=== PATIENT | female | born 1980 | race African-American/Black ===

== ENCOUNTER → 2016-12-03 | Outpatient (CLI) | payer MEDICAID ==
[2016-12-03 16:07] LABS: CHLAM PCR NOT DETECTED (NOT DETECT)
== END ==
LOC: LAB 14:22
PROVIDERS: ATTEND Nurse Practitioner Acute Care
DX: N89.8 Other specified noninflammatory disorders of vagina (principal)
CPT/HCPCS: 87210; 87491; 87591

== ENCOUNTER 2017-03-05 13:45 | Emergency (ER) | payer MEDICAID ==
[2017-03-05] MEDS ORDERED: KETOROLAC TROMETHAMINE INJ/PF 30 MG/1 ML SDV IV ONE (15:04)
[2017-03-05] MEDS ORDERED: DEXAMETHASONE SOD PHOS INJ 10 MG/1 ML VIAL IV ONE (15:04)
[2017-03-05] MEDS ORDERED: NORMAL SALINE 1000 ML 1,000 ML IV ONE (15:14)
[2017-03-05 15:49] LABS: ABSOLUTE LYMPHOCYTES (AUTO) 1.1 10^3/uL (0.5-4.7); ABSOLUTE MONOCYTES (AUTO) 0.4 10^3/uL (0.1-1.4); ABSOLUTE NEUT (AUTO) 4.7 10^3/uL (1.7-8.2); BASOPHILS % (AUTO) 0.4 % (0-2); EOSINOPHILS % (AUTO) 0.2 % (0-6); HEMATOCRIT 40.6 % (36.0-47.0); HEMOGLOBIN 13.5 g/dL (12.0-15.5); HGB HCT DIFFERENCE -0.1; MEAN CORPUSCULAR HEMOGLOBIN 28.1 pg (27.0-33.4); MEAN CORPUSCULAR HGB CONC 33.3 g/dL (32.0-36.0); MEAN CORPUSCULAR VOLUME 84 fl (80-97); MONOCYTES % (AUTO) 6.4 % (3-13); RED BLOOD COUNT 4.81 10^6/uL (3.72-5.28); RED CELL DISTRIBUTION WIDTH 13.5 % (11.5-14.0); WHITE BLOOD COUNT 6.2 10^3/uL (4.0-10.5)
[2017-03-05 15:54] LABS: APPEARANCE,URINE SLIGHTLY-CLOUDY; BILIRUBIN,URINE NEGATIVE (NEGATIVE); GLUCOSE, URINE NEGATIVE (NEGATIVE); KETONES,URINE NEGATIVE (NEGATIVE); LEUKOCYTE ESTERASE,URINE NEGATIVE (NEGATIVE); NITRITE,URINE NEGATIVE (NEGATIVE); PROTEIN,URINE 30 mg/dL (NEGATIVE); URINE SPECIFIC GRAVITY 1.027
[2017-03-05 16:09] LABS: ALANINE AMINOTRANSFERASE 45 U/L (9-52); ALBUMIN 4.9 g/dL (3.5-5.0); ALKALINE PHOSPHATASE 59 U/L (38-126); ANION GAP 17 (5-19); ASPARTATE AMINO TRANSFERASE 30 U/L (14-36); BILIRUBIN,DIRECT 0.4 mg/dL (0.0-0.4); BILIRUBIN,TOTAL 0.6 mg/dL (0.2-1.3); BLOOD UREA NITROGEN 10 mg/dL (7-20); CALCIUM 10.2 mg/dL (8.4-10.2); CARBON DIOXIDE 26 mmol/L (22-30); CHLORIDE 100 mmol/L (98-107); CREATINE KINASE 247 U/L (30-135); CREATININE RESULT 0.74 mg/dL (0.52-1.25); GLUCOSE 95 mg/dL (75-110); POTASSIUM 3.8 mmol/L (3.6-5.0); SODIUM 142.9 mmol/L (137-145); TOTAL PROTEIN 8.4 g/dL (6.3-8.2)
[2017-03-05 16:09] LABS: URINE BARBITURATES SCREEN NEGATIVE; URINE METHADONE SCREEN NEGATIVE; URINE OPIATES LOW NEGATIVE; URINE PHENCYCLIDINE SCREEN NEGATIVE
--- NOTE | 2017-03-05 16:58 | ER Document Report ---
ED General - General Chief Complaint: General Weakness Stated Complaint: BODY WEAKNESS Time Seen by Provider: 03/05/17 14:29 TRAVEL OUTSIDE OF THE [place] IN LAST 30 DAYS: No - HPI Patient complains to provider of: Arthralgias generalized weakness Notes: Patient states recently diagnosed with RA. Patient states was diagnosed sometime ago with Crohn's disease. Patient states currently on mesalamine. Patient states continues to have generalized weakness arthralgias. Patient states otherwise feels unwell is not to start on any other treatment for her RA. Denies fevers chills nausea vomiting diarrhea. Patient resting comfortably in well spirits upon my evaluation. - Related Data Allergies/Adverse Reactions: No Known Allergies Allergy (Verified 03/05/17 13:55) Past Medical History - Social History Smoking Status: Current Some Day Smoker Chew tobacco use (# tins/day): No Frequency of alcohol use: Occasional Drug Abuse: None Family History: Reviewed & Not Pertinent Patient has suicidal ideation: No Patient has homicidal ideation: No Renal/ Medical History: Denies: Hx Peritoneal Dialysis GI Medical History: Reports: Hx Crohn's Disease Psychiatric Medical History: Reports: Hx Anxiety, Hx Depression - anxiety Past Surgical History: Reports: Hx Abdominal Surgery - 2009, Hx Gynecologic Surgery - tubal , thinks lost tube and 1/2 ovary?, Hx Tonsillectomy - Immunizations Immunizations up to date: Yes Hx Diphtheria, Pertussis, Tetanus Vaccination: No Review of Systems - Review of Systems Constitutional: Weakness EENT: No symptoms reported Cardiovascular: No symptoms reported Respiratory: No symptoms reported Gastrointestinal: No symptoms reported Genitourinary: No symptoms reported Female Genitourinary: No symptoms reported Musculoskeletal: Muscle pain Skin: No symptoms reported Hematologic/Lymphatic: No symptoms reported Neurological/Psychological: No symptoms reported -: Yes All other systems reviewed and negative Physical Exam - Vital signs Vitals: Temp Pulse Resp BP Pulse Ox 98.4 F 72 16 117/54 L 98 03/05/17 13:52 03/05/17 13:52 03/05/17 13:52 03/05/17 13:52 03/05/17 13:52 Interpretation: Normal - General General appearance: Appears well, Alert - HEENT Head: Normocephalic, Atraumatic Eyes: Normal Pupils: PERRL - Respiratory Respiratory status: No respiratory distress Chest status: Nontender Breath sounds: Normal Chest palpation: Normal - Cardiovascular Rhythm: Regular Heart sounds: Normal auscultation Murmur: No - Abdominal Inspection: Normal Distension: No distension Bowel sounds: Normal Tenderness: Nontender Organomegaly: No organomegaly - Back Back: Normal, Nontender - Extremities General upper extremity: Normal inspection, Nontender, Normal color, Normal ROM , Normal temperature General lower extremity: Normal inspection, Nontender, Normal color, Normal ROM , Normal temperature, Normal weight bearing. No: Rhina's sign - Neurological Neuro grossly intact: Yes Cognition: Normal Orientation: AAOx4 [place] Coma Scale Eye Opening: Spontaneous Jeremiah Coma Scale Verbal: Oriented [place] Coma Scale Motor: Obeys Commands [place] Coma Scale Total: 15 Speech: Normal Motor strength normal: LUE, RUE, LLE, RLE Sensory: Normal - Psychological Associated symptoms: Normal affect, Normal mood - Skin Skin Temperature: Warm Skin Moisture: Dry Skin Color: Normal Course - Re-evaluation Re-evalutation: 03/05/17 19:59 Laboratory studies not show any significant pathology. We will start the patient on steroids for her underlying RA. Patient was encouraged follow-up with her PCP for rheumatology referral. Patient agrees with assessment and plan. - Vital Signs Vital signs: Temp Pulse Resp BP Pulse Ox 99.1 F 64 16 124/60 100 03/05/17 17:05 03/05/17 17:05 03/05/17 17:05 03/05/17 17:05 03/05/17 17:05 - Laboratory Result Diagrams: 03/05/17 15:20 03/05/17 15:20 Laboratory results interpreted by me: 03/05/17 03/05/17 15:20 15:25 Creatine Kinase 247 H Total Protein 8.4 H Urine Protein 30 H Urine Urobilinogen 2.0 H Urine Ascorbic Acid 40 H Discharge - Discharge Clinical Impression: Arthralgia Qualifiers: Joint pain location: unspecified Qualified Code(s): M25.50 - Pain in unspecified joint Condition: Good Disposition: HOME, SELF-CARE Instructions: Arthralgia ([facility]), Arthritis ([facility]) Additional Instructions: At this time your lab work does not show any critical pathology. Please take medication as prescribed. This will aid in your arteries symptoms however for chronic management you will need to follow-up with your primary care physician. Return to the ER for any concerns. Prescriptions: Naproxen [Naprosyn 250 mg Tablet] 250 mg PO DAILY PRN #30 tablet PRN Reason: Prednisone [Deltasone] 60 mg PO DAILY #24 tablet Forms: Return to Work Referrals: LEONEL HUERTAS MD [Primary Care Provider] - Follow up as needed
[2017-03-05 17:06] VITALS: BP 124/60
== END 2017-03-05 17:06 | disposition home or self-care (01) ==
LOC: ER 13:45
DX: M25.50 Pain in unspecified joint (principal); R53.1 Weakness; K50.90 Crohn's disease, unspecified, without complications; F17.200 Nicotine dependence, unspecified, uncomplicated
CPT/HCPCS: 99284; 96361; 96374; 96375; 36415; 82550; 84702; 85025; 80053; 81001; 80307; J1885; J7030; J1100

== ENCOUNTER 2018-03-12 13:24 | Emergency (ER) | payer MEDICAID ==
[2018-03-12] MEDS ORDERED: PREDNISONE 20 MG TABLET PO ONE (14:21)
[2018-03-12] MEDS ORDERED: ACETAMINOPHEN 325 MG TABLET PO ONE (14:21)
--- NOTE | 2018-03-12 14:29 | ER Document Report ---
HPI - HPI Patient complains to provider of: Joint pain Time Seen by Provider: 03/12/18 14:02 Onset: Other Onset/Duration: Persistent Quality of pain: Achy Pain Level: 4 Context: Patient reports a history of rheumatoid arthritis and complains of joint pain for several months that has worsened recently. Patient states that her joints do hurt worse with weather changes. Patient states that she finally has a referral to a optical designer but that is not until May of next year. Patient reports that she did start a new job recently and increased activity seems to be making her pain worse as well. Patient denies any fever or injury. Patient states that her doctor had placed her on tramadol to help with her pain symptoms but patient states that the tramadol did not do anything that the [id number] anti-inflammatory medications were doing. Associated Symptoms: Other - Knee joint, foot and hand joint pain. denies: Fever Exacerbated by: Movement Relieved by: Denies Similar symptoms previously: Yes Recently seen / treated by doctor: No - ROS ROS below otherwise negative: Yes Systems Reviewed and Negative: Yes All other systems reviewed and negative - CONSTITUTIONAL Constitutional: DENIES: Fever, Chills - NEURO Neurology: DENIES: Weakness - GASTROINTESTINAL Gastrointestinal: DENIES: Nausea - REPRODUCTIVE Reproductive: DENIES: : - MUSCULOSKELETAL Musculoskeletal: REPORTS: Extremity pain - bilateral knee, Swelling - DERM Skin Color: Normal Skin Problems: None Past Medical History - General Information source: Patient - Social History Smoking Status: Current Some Day Smoker Smoking Education Provided: Yes Frequency of alcohol use: None Drug Abuse: None Occupation: Housekeeping Lives with: Family Family History: Reviewed & Not Pertinent Patient has suicidal ideation: No Patient has homicidal ideation: No Renal/ Medical History: Denies: Hx Peritoneal Dialysis GI Medical History: Reports: Hx Crohn's Disease Musculoskeletal Medical History: Reports Hx Arthritis - Rheumatoid arthritis Psychiatric Medical History: Reports: Hx Anxiety, Hx Depression - anxiety Past Surgical History: Reports: Hx Abdominal Surgery - 2010, Hx Gynecologic Surgery - tubal , thinks lost tube and 1/2 ovary?, Hx Tonsillectomy - Immunizations Immunizations up to date: Yes Hx Diphtheria, Pertussis, Tetanus Vaccination: No Vertical Provider Document - CONSTITUTIONAL Agree With Documented VS: Yes Exam Limitations: No Limitations General Appearance: WD/WN, No Apparent Distress - INFECTION CONTROL TRAVEL OUTSIDE OF THE [place] IN LAST 30 DAYS: No - HEENT HEENT: Atraumatic, Normocephalic - NECK Neck: Normal Inspection, Supple. negative: Lymphadenopathy-Left, Lymphadenopathy-Right - RESPIRATORY Respiratory: Breath Sounds Normal, No Respiratory Distress - CARDIOVASCULAR Cardiovascular: Regular Rate, Regular Rhythm, No Murmur Pulses: Normal: Radial, Dorsalis pedis - BACK Back: Normal Inspection - MUSCULOSKELETAL/EXTREMETIES Musculoskeletal/Extremeties: MAEW, FROM, Tender - Generalized tenderness to bilateral knees, ankles and small bones of bilateral hands, Edema - 1+ edema to bilateral knees Notes: Normal skin color and temperature overlying joints of hands knees and feet - NEURO Level of Consciousness: Awake, Alert, Appropriate Motor/Sensory: No Motor Deficit - DERM Integumentary: Warm, Dry, No Rash Course - Re-evaluation Re-evalutation: 03/12/18 14:22 Patient presents with joint tenderness to knees hands and feet consistent with reported history of rheumatoid arthritis. Patient states that her primary doctor has only given her tramadol to help manage her pain symptoms while waiting for her rheumatology referral in May. Patient denies any illness or fever. Patient denies any trauma. Patient states that the weather does affect her pain as well as recently starting a new job that is physically demanding. Patient states that she does not like the way the tramadol makes her feel and it does not help her pain any more significantly than over-the- counter NSAIDs have. - Vital Signs Vital signs: Temp Pulse Resp BP Pulse Ox 99.4 F 66 16 115/57 L 100 03/12/18 13:46 03/12/18 13:46 03/12/18 13:46 03/12/18 13:46 03/12/18 13:46 Discharge - Discharge Clinical Impression: Hx of rheumatoid arthritis Joint pain Qualifiers: Joint pain location: unspecified Qualified Code(s): M25.50 - Pain in unspecified joint Condition: Stable Disposition: HOME, SELF-CARE Instructions: Rheumatoid Arthritis ([facility]), Steroid Medication Additional Instructions: Return immediately for any new or worsening symptoms Followup with your primary care provider, call tomorrow to make a followup appointment Call the optical designer office to see if they have a call out list for appointments so that you may possibly get a sooner appointment Prescriptions: Prednisone [Deltasone 5 mg Tablet] 5 mg PO ASDIR PRN #100 tablet PRN Reason: Forms: Return to Work Referrals: RAUL VEGAS MD [ACTIVE STAFF] - Follow up as needed [facility] [Provider Group] - Follow up as needed
[2018-03-12 14:50] VITALS: BP 124/52
== END 2018-03-12 14:52 | disposition home or self-care (01) ==
LOC: ER 13:24
DX: M25.50 Pain in unspecified joint (principal); M06.9 Rheumatoid arthritis, unspecified
CPT/HCPCS: 99283; J3490; J7512

== ENCOUNTER 2018-08-18 15:13 | Emergency (ER) | payer MEDICAID ==
[2018-08-18 15:23] VITALS: BP 123/57
[2018-08-18] MEDS ORDERED: KETOROLAC TROMETHAMINE 60 MG/2 ML SDV IM ONE (15:35)
--- NOTE | 2018-08-18 15:40 | ER Document Report ---
HPI - HPI Time Seen by Provider: 08/18/18 15:27 Pain Level: 4 Notes: Patient is a 38-year-old female with a history of rheumatoid arthritis who presents the emergency department complaining of bilateral feet pain to the soles of her feet that is been ongoing for months. Patient states that she has been seen by multiple providers as well as a software quality manager and had x-rays performed which were unremarkable. Patient states that she has the worst pain on first step in the morning bilaterally. Patient states that she usually wears hard soled flip-flops. Patient states that she has not had any surgery, procedure, injection, or therapy. Pain does not radiate. She has not noticed any bruising or swelling. No injury. Denies drug allergies. Denies any headache, fever, neck pain, URI, sore throat, chest pain, palpitations, syncope, cough, shortness of breath, wheeze, dyspnea, abdominal pain, nausea/vomiting/diarrhea, urinary retention, dysuria, hematuria, loss of control of bowel or bladder, numbness/tingling, muscle paralysis, or rash. - ROS Systems Reviewed and Negative: Yes All other systems reviewed and negative - CONSTITUTIONAL Constitutional: DENIES: Fever, Chills - REPRODUCTIVE Reproductive: DENIES: : - MUSCULOSKELETAL Musculoskeletal: REPORTS: Extremity pain - bilateral foot pain Past Medical History - Social History Smoking Status: Current Some Day Smoker Frequency of alcohol use: None Drug Abuse: None Family History: Reviewed & Not Pertinent Patient has suicidal ideation: No Patient has homicidal ideation: No Renal/ Medical History: Denies: Hx Peritoneal Dialysis GI Medical History: Reports: Hx Crohn's Disease Musculoskeletal Medical History: Reports Hx Arthritis - Rheumatoid arthritis Psychiatric Medical History: Reports: Hx Anxiety, Hx Depression - anxiety Past Surgical History: Reports: Hx Abdominal Surgery - 2010, Hx Gynecologic Surgery - tubal , thinks lost tube and 1/2 ovary?, Hx Tonsillectomy - Immunizations Immunizations up to date: Yes Hx Diphtheria, Pertussis, Tetanus Vaccination: No Vertical Provider Document - CONSTITUTIONAL Agree With Documented VS: Yes Notes: PHYSICAL EXAMINATION: GENERAL: Well-appearing, well-nourished and in no acute distress. LUNGS: Breath sounds clear to auscultation bilaterally and equal. No wheezes rales or rhonchi. HEART: Regular rate and rhythm without murmurs, rubs, gallops. Musculoskeletal: b/l foot/ankle:No swelling, ecchymosis or deformity. FROM to passive/active. Strength 5+/5. N/V intact distal. + tenderness to the plantar foot b/l. No bony tenderness of the foot/ankle. Achilles intact. Lis Franc maneuver neg. Anterior drawer neg. Extremities: No cyanosis, clubbing, or edema b/l. Peripheral pulses 2+. Capillary refill less than 3 seconds. NEUROLOGICAL: Normal speech, normal gait. Normal sensory, motor exams PSYCH: Normal mood, normal affect. SKIN: Warm, Dry, normal turgor, no rashes or lesions noted. - INFECTION CONTROL TRAVEL OUTSIDE OF THE [place] IN LAST 30 DAYS: No Course - Re-evaluation Re-evalutation: 08/18/18 15:37 Patient is an afebrile, well-hydrated, 38-year-old female who presents to the ED with b/l feet pain which I suspect to be possible plantar fasciitis. Vitals are acceptable without any significant tachycardia, tachypnea, or hypoxia. PE is otherwise unremarkable for any neurovascular compromise, obvious tendon/ligament rupture, obvious fracture/dislocation, septic joint. Toradol given IM. Patient is nontoxic-appearing. Patient is able to ambulate and weight-bear. Supportive shoes reviewed. Pt has reportedly had previous work ups for the same issue with podiatry/family med. No labs or imaging warranted at this time based on H&P. Conservative measures otherwise for symptoms. Recheck with your PCM in 3-5 days. Consider consult orthopedics. Return to the ED with any worsening/concerning symptoms otherwise as reviewed in discharge. Patient is in agreement. - Vital Signs Vital signs: Temp Pulse Resp BP Pulse Ox 98.8 F 72 14 123/57 L 100 08/18/18 15:19 08/18/18 15:19 08/18/18 15:19 08/18/18 15:19 08/18/18 15:19 Discharge - Discharge Clinical Impression: Bilateral foot pain Condition: Stable Disposition: HOME, SELF-CARE Instructions: Plantar Fasciitis or Heel Spur ([facility]) Additional Instructions: Rest, Ice, Compression, Elevation Tylenol/ibuprofen as needed Light stretches daily Strength exercises as able Moist heat and massage may help F/u with your PCP in 3-5 days for a recheck Consider consult(s) with Orthopedics/physical therapy/podiatry for ongoing/worsening symptoms Return to the ED with any worsening symptoms and/or development of fever, headache, chest pain, palpitations, syncope, shortness of breath, trouble breathing, abdominal pain, n/v/d, muscle weakness/paralysis, numbness/tingling, swelling, redness, or other worsening symptoms that are concerning to you. Prescriptions: Prednisone [Deltasone 10 mg Tablet] 10 mg PO DAILY #18 tablet Referrals: GABRIEL BURGOS MD [Primary Care Provider] - Follow up as needed KERRY MNOTOYA DPM [ACTIVE STAFF] - Follow up in 1 week
== END 2018-08-18 15:59 | disposition home or self-care (01) ==
LOC: ER 15:13
DX: M79.672 Pain in left foot (principal); M79.671 Pain in right foot
CPT/HCPCS: 99283; 96372; J1885

== ENCOUNTER 2019-05-24 17:44 | Emergency (ER) | payer MEDICAID ==
[2019-05-24] MEDS ORDERED: ONDANSETRON 4 MG TAB.RAPDIS PO ONE ×2 (19:21→22:00)
[2019-05-24] MEDS ORDERED: ACETAMINOPHEN 325 MG TABLET PO ONE ×2 (19:21→22:00)
[2019-05-24] MEDS ORDERED: KETOROLAC TROMETHAMINE INJ/PF 30 MG/1 ML SDV IM ONE ×2 (19:21→22:00)
--- NOTE | 2019-05-24 19:23 | ER Document Report ---
HPI - HPI Time Seen by Provider: 05/24/19 19:21 Pain Level: 3 Context: Patient is a 39-year-old female presents emergency department with a chief complaint of flulike symptoms. Patient reports last night developing a sore throat and then today waking up with a runny nose, productive cough, chills. Patient reports she do not get the influenza vaccine. Patient denies known exposure. Patient denies sick contacts. Patient reports nausea with 2 episodes of vomiting. Patient has not had anything for her discomfort today. Patient does have a history of Crohn's. Denies diarrhea. - REPRODUCTIVE Reproductive: DENIES: : Past Medical History - General Information source: Patient - Social History Smoking Status: Current Every Day Smoker Frequency of alcohol use: Occasional Drug Abuse: None Lives with: Family Family History: Reviewed & Not Pertinent Patient has suicidal ideation: No Patient has homicidal ideation: No - Past Medical History Cardiac Medical History: Reports: None Pulmonary Medical History: Reports: None EENT Medical History: Reports: None Neurological Medical History: Reports: None Endocrine Medical History: Reports: None Renal/ Medical History: Reports: None. Denies: Hx Peritoneal Dialysis Malignancy Medical History: Reports: None GI Medical History: Reports: Hx Crohn's Disease Musculoskeletal Medical History: Reports Hx Arthritis - Rheumatoid arthritis Skin Medical History: Reports None Psychiatric Medical History: Reports: Hx Anxiety, Hx Depression - anxiety Traumatic Medical History: Reports: None Infectious Medical History: Reports: None Past Surgical History: Reports: Hx Abdominal Surgery - 2010, Hx Gynecologic Surgery - tubal , thinks lost tube and 1/2 ovary?, Hx Tonsillectomy - Immunizations Immunizations up to date: Yes Hx Diphtheria, Pertussis, Tetanus Vaccination: No Vertical Provider Document - CONSTITUTIONAL Agree With Documented VS: Yes Exam Limitations: No Limitations General Appearance: No Apparent Distress Notes: GENERAL: Well-appearing, well-nourished and in no acute distress. HEAD: Atraumatic, normocephalic. EYES: Pupils equal round and reactive to light, extraocular movements intact, sclera anicteric, conjunctiva are normal. ENT: TMs normal, nares patent, bilateral erythematous and edematous turbinates, oropharynx clear without exudates. Moist mucous membranes. Clear rhinorrhea. NECK: Normal range of motion, supple without lymphadenopathy or JVD. LUNGS: Breath sounds clear to auscultation bilaterally and equal. No wheezes rales or rhonchi. Congested cough noted throughout examination. HEART: Regular rate and rhythm without murmurs, rubs or gallops. ABDOMEN: Soft, nontender, normoactive bowel sounds. No guarding, no rebound. No masses appreciated. BACK: No cervical, thoracic, lumbar midline tenderness. No saddle anesthesia, normal distal neurovascular exam. GENITOURINARY: Deferred. EXTREMITIES: Normal range of motion, no pitting or edema. No clubbing or cyanosis. NEUROLOGICAL: Cranial nerves II through XII grossly intact. Normal speech, normal gait. PSYCH: Normal mood, normal affect. SKIN: Warm, Dry, normal turgor, no rashes or lesions noted. - INFECTION CONTROL TRAVEL OUTSIDE OF THE [place] IN LAST 30 DAYS: No Course - Re-evaluation Re-evalutation: 05/24/19 19:23 Will test for the flu. Patient is tolerating liquids without vomiting currently. Will give antinausea medication as well as Tylenol and Toradol. 05/24/19 21:17 Patient was negative for influenza. Patient is presenting like she does have influenza with runny nose, cough, fever, congestion. We will treat the patient like she has it and give Tamiflu. Patient is agreement with this plan. Patient denies sick contacts at home. I did inform her if she does have influenza or viral illness is highly contagious. Patient encouraged to drink plenty of fluids, take Tylenol and ibuprofen [id number] for fever and body aches. Patient currently is not febrile, tachycardic or hypotensive. - Vital Signs Vital signs: Temp Pulse Resp BP Pulse Ox 99.5 F 87 16 126/59 H 100 05/24/19 18:18 05/24/19 18:18 05/24/19 18:18 05/24/19 18:18 05/24/19 18:18 Discharge - Discharge Clinical Impression: Flu-like symptoms, Rhinorrhea Condition: Stable Disposition: HOME, SELF-CARE Additional Instructions: *Today you are seen in the emergency department for flulike symptoms. Your influenza testing was negative but I am going to treat you like you do have it as her symptoms are consistent with influenza. Please take Tylenol and ibuprofen [id number] for your body aches and fever. I am giving you antinausea medication, only use this as needed. Please make sure you are pushing fluids to stay hydrated. Please rest. Please return emergency department if you develop any worsening symptoms. Viral Syndrome The physician has diagnosed a viral infection. Viruses not only cause "colds," but can cause many different symptoms including generalized aching, fever, headache, cough, diarrhea, nausea, vomiting, and fatigue. The treatment, for the most part, is simply relief of symptoms. This means that antibiotics are usually not given. Rest, fluids, pain medications and, occasionally, medication for the specific symptoms that are most bothersome will be prescribed. Use good handwashing to avoid passing the virus to others. Shared toys should be cleaned with disinfectant. Clean the toilets, sinks, and counter surfaces in bathrooms. Launder clothing in hot water. Contact the physician if you develop any new or unusual symptoms such as severe headache, stiff neck, high fever, chest pain, productive cough, or shortness of breath. You should be rechecked if you don't see marked impr ovement within seven to 10 days. Prescriptions: Oseltamivir Phosphate [Tamiflu 75 mg Capsule] 75 mg PO BID 5 Days #10 capsule Forms: Return to Work Referrals: RAJESH NUGENT, [employer]PER[facility] [Primary Care Provider] - Follow up as needed
[2019-05-24 20:36] LABS: A TYPE INFLUENZA AG NEGATIVE (NEGATIVE); B INFLUENZA AG NEGATIVE (NEGATIVE)
[2019-05-24 21:02] VITALS: BP 123/64
== END 2019-05-24 21:00 | disposition home or self-care (01) ==
LOC: ER 17:44
DX: J34.89 Other specified disorders of nose and nasal sinuses (principal); J02.9 Acute pharyngitis, unspecified; R05 Cough; R68.83 Chills (without fever); R11.2 Nausea with vomiting, unspecified; F17.200 Nicotine dependence, unspecified, uncomplicated
CPT/HCPCS: 99283; 96372; 87804; J3490; S0119; J1885

== ENCOUNTER → 2019-06-28 | Outpatient (CLI) | payer MEDICAID ==
--- NOTE | 2019-06-28 17:49 | RADIOLOGY REPORT (SQ) ---
EXAM DESCRIPTION: FOOT BILATERAL 3 VIEWS COMPLETED DATE/TIME: 06/28/2019 4:59 pm REASON FOR STUDY: RHEUMATOID ARTHRITIS, UNSPECIFIED M06.9 RHEUMATOID ARTHRITIS, UNSPECIFIED COMPARISON: None. NUMBER OF VIEWS: Three views. TECHNIQUE: AP, lateral and oblique without weight bearing radiographic images acquired of the right and left foot. LIMITATIONS: None. FINDINGS: MINERALIZATION: Normal. BONES: No acute fracture or dislocation. No worrisome bone lesions. No significant osteophytes. JOINTS: No erosions. No jennifer-articular osteopenia. No chondrocalcinosis. SOFT TISSUES: No swelling. No calcifications. OTHER: No other significant finding. IMPRESSION: NEGATIVE STUDY OF THE RIGHT AND LEFT FEET. NO EXPLANATION FOR PAIN. TECHNICAL DOCUMENTATION: JOB ID: [id number] 2010 [employer]- All Rights Reserved Reading location - IP/workstation name: [email or web address]
--- NOTE | 2019-06-28 17:51 | RADIOLOGY REPORT (SQ) ---
EXAM DESCRIPTION: ANKLE BILATERAL 3 VIEWS MIN COMPLETED DATE/TIME: 06/28/2019 4:59 pm REASON FOR STUDY: RHEUMATOID ARTHRITIS, UNSPECIFIED M06.9 RHEUMATOID ARTHRITIS, UNSPECIFIED COMPARISON: None. NUMBER OF VIEWS: Three views. TECHNIQUE: AP, lateral, and oblique without weight bearing radiographic images acquired of the right and left ankle. LIMITATIONS: None. FINDINGS: MINERALIZATION: Normal. BONES: No acute fracture or dislocation. No worrisome bone lesions. No significant osteophytes. JOINTS: No effusions. SOFT TISSUES: No soft tissue swelling. No foreign body. OTHER: No other significant finding. IMPRESSION: NEGATIVE STUDY OF THE RIGHT AND LEFT ANKLES. NO EXPLANATION FOR PAIN. TECHNICAL DOCUMENTATION: JOB ID: [id number] 2010 [email or web address]- All Rights Reserved Reading location - IP/workstation name: [email or web address]
--- NOTE | 2019-06-28 17:53 | RADIOLOGY REPORT (SQ) ---
EXAM DESCRIPTION: HAND BILATERAL 3 VIEWS COMPLETED DATE/TIME: 06/28/2019 4:59 pm REASON FOR STUDY: RHEUMATOID ARTHRITIS, UNSPECIFIED M06.9 RHEUMATOID ARTHRITIS, UNSPECIFIED COMPARISON: None. EXAM PARAMETERS: NUMBER OF VIEWS: Three views right hand. Three views left hand. TECHNIQUE: AP, lateral and oblique radiographic images acquired of bilateral hands. LIMITATIONS: None. FINDINGS: RIGHT HAND: MINERALIZATION: Normal. BONES: No acute fracture or dislocation. No worrisome bone lesions. No significant osteophytes. JOINTS: Mild degenerative joint changes in the 1st carpometacarpal joint. SOFT TISSUES: No swelling. No calcifications. OTHER: No other significant finding. LEFT HAND: MINERALIZATION: Normal. BONES: No acute fracture or dislocation. No worrisome bone lesions. No significant osteophytes. JOINTS: Mild degenerative joint changes in the 1st carpometacarpal joint. SOFT TISSUES: No swelling. No calcifications. OTHER: No other significant finding. IMPRESSION: Mild degenerative joint changes in the 1st carpometacarpal joints bilaterally. TECHNICAL DOCUMENTATION: JOB ID: [id number] 2010 [employer]- All Rights Reserved Reading location - IP/workstation name: [email or web address]
--- NOTE | 2019-06-28 17:56 | RADIOLOGY REPORT (SQ) ---
EXAM DESCRIPTION: WRIST BILATERAL 3 VIEWS COMPLETED DATE/TIME: 06/28/2019 4:59 pm REASON FOR STUDY: RHEUMATOID ARTHRITIS, UNSPECIFIED M06.9 RHEUMATOID ARTHRITIS, UNSPECIFIED COMPARISON: None. NUMBER OF VIEWS: Three views. TECHNIQUE: AP, lateral, and oblique radiographic images acquired of the right and left wrist. LIMITATIONS: None. FINDINGS: MINERALIZATION: Normal. BONES: No acute fracture or dislocation. No worrisome bone lesions. Normal alignment. No significant osteophytes. JOINTS: Mild degenerative joint changes in each 1st carpometacarpal joint. SOFT TISSUES: No swelling. No calcifications. OTHER: No other significant finding. IMPRESSION: Degenerative joint disease in each 1st carpometacarpal joint. TECHNICAL DOCUMENTATION: JOB ID: [id number] 2010 [employer]- All Rights Reserved Reading location - IP/workstation name: [email or web address]
== END ==
LOC: RAD 16:17
PROVIDERS: ATTEND Nurse Practitioner Primary Care
DX: M06.9 Rheumatoid arthritis, unspecified (principal)

== ENCOUNTER 2020-03-29 11:36 | Emergency (ER) | payer MEDICAID ==
--- NOTE | 2020-03-29 13:14 | ER Document Report ---
ED Medical Screen (RME) - General Stated Complaint: LOWE BACK PAIN/ BODY SWELLING Time Seen by Provider: 03/29/20 13:11 Primary Care Provider: FRANCK MCNEIL FNP-C [Primary Care Provider] - Follow up as needed Notes: Patient presents complaining of a 1 week history of generalized body swelling. Patient also complains of left flank pain and headache. Patient states she is had some chills. Patient reports occasional exertional shortness of breath. Patient denies any cough. Patient additionally complains of some lower abdominal pain. Patient does have a history of Crohn's. I have greeted and performed a rapid initial assessment of this patient. A comprehensive ED assessment and evaluation of the patient, analysis of test results and completion of the medical decision making process will be conducted by additional ED providers. TRAVEL OUTSIDE OF THE [place] IN LAST 30 DAYS: No - Related Data Allergies/Adverse Reactions: No Known Allergies Allergy (Verified 03/29/20 13:10) Past Medical History Renal/ Medical History: Denies: Hx Peritoneal Dialysis GI Medical History: Reports: Hx Crohn's Disease Musculoskeltal Medical History: Reports Hx Arthritis - Rheumatoid arthritis Psychiatric Medical History: Reports: Hx Anxiety, Hx Depression - anxiety Past Surgical History: Reports: Hx Abdominal Surgery - 2009, Hx Gynecologic Surgery - tubal , thinks lost tube and 1/2 ovary?, Hx Tonsillectomy - Immunizations Immunizations up to date: Yes Hx Diphtheria, Pertussis, Tetanus Vaccination: No Physical Exam - Vital signs Vitals: Temp Pulse Resp BP Pulse Ox 98.4 F 86 16 128/61 H 100 03/29/20 11:44 03/29/20 11:44 03/29/20 11:44 03/29/20 11:44 03/29/20 11:44 - Abdominal Tenderness: Tender - Lower pelvic - Back Back: CVA tenderness - Left Course - Vital Signs Vital signs: Temp Pulse Resp BP Pulse Ox 98.4 F 86 16 128/61 H 100 03/29/20 11:44 03/29/20 11:44 03/29/20 11:44 03/29/20 11:44 03/29/20 11:44 Doctor's Discharge - Discharge Referrals: FRANCK MCNEIL FNP-C [Primary Care Provider] - Follow up as needed
--- NOTE | 2020-03-29 14:21 | RADIOLOGY REPORT (SQ) ---
EXAM DESCRIPTION: CHEST SINGLE VIEW<Procedure Description>CHEST SINGLE VIEW IMAGES COMPLETED DATE/TIME: 03/29/2020 1:35 pm<Completed Time>03/29/2020 1:35 pm REASON FOR STUDY: sob<Reason For Exam>sob <ADM DX> COMPARISON: 06/28/2007 NUMBER OF VIEWS: One. TECHNIQUE: Single frontal radiographic view of the chest acquired. RADIATION DOSE: <RADIATION DOSE> LIMITATIONS: None. FINDINGS: LUNGS AND PLEURA: No pneumothorax. No consolidation or pleural effusion. MEDIASTINUM AND HILAR STRUCTURES: Stable. HEART AND VASCULAR STRUCTURES: Stable. BONES: No acute findings. HARDWARE: None in the chest. OTHER: No other significant findings. IMPRESSION: NO ACUTE FINDINGS. TECHNICAL DOCUMENTATION: JOB ID: [id number]<Job ID>[id number] 2010 [employer]- All Rights Reserved Reading location - IP/workstation name: [email or web address]
[2020-03-29 14:36] LABS: ABSOLUTE LYMPHOCYTES (AUTO) 0.9 10^3/uL (0.5-4.7); ABSOLUTE MONOCYTES (AUTO) 0.7 10^3/uL (0.1-1.4); ABSOLUTE NEUT (AUTO) 6.8 10^3/uL (1.7-8.2); BASOPHILS % (AUTO) 0.2 % (0-2); EOSINOPHILS % (AUTO) 0.1 % (0-6); HEMATOCRIT 36.1 % (36.0-47.0); HEMOGLOBIN 11.8 g/dL (12.0-15.5); LYMPHOCYTES % (AUTO) 10.1 % (13-45); MEAN CORPUSCULAR HEMOGLOBIN 26.2 pg (27.0-33.4); MEAN CORPUSCULAR HGB CONC 32.7 g/dL (32.0-36.0); MEAN CORPUSCULAR VOLUME 80 fl (80-97); MONOCYTES % (AUTO) 8.7 % (3-13); PLATELET COUNT 274 10^3/uL (150-450); RED CELL DISTRIBUTION WIDTH 15.7 % (11.5-14.0); SEGMENTED NEUTROPHILS % (AUTO) 80.9 % (42-78); TOTAL CELLS COUNTED % (AUTO) 100 %; WHITE BLOOD COUNT 8.4 10^3/uL (4.0-10.5)
[2020-03-29 14:42] LABS: ALBUMIN 4.5 g/dL (3.5-5.0); ALKALINE PHOSPHATASE 63 U/L (38-126); ANION GAP 8 (5-19); ASPARTATE AMINO TRANSFERASE 29 U/L (14-36); BILIRUBIN,DIRECT 0.2 mg/dL (0.0-0.4); BILIRUBIN,TOTAL 0.5 mg/dL (0.2-1.3); BLOOD UREA NITROGEN 6 mg/dL (7-20); CALCIUM 9.9 mg/dL (8.4-10.2); CARBON DIOXIDE 29 mmol/L (22-30); CHLORIDE 101 mmol/L (98-107); GLUCOSE 106 mg/dL (75-110); TOTAL PROTEIN 7.9 g/dL (6.3-8.2)
[2020-03-29 14:58] LABS: APPEARANCE,URINE SLIGHTLY-CLOUDY; BILIRUBIN,URINE NEGATIVE (NEGATIVE); COLOR,URINE YELLOW; GLUCOSE, URINE NEGATIVE (NEGATIVE); KETONES,URINE NEGATIVE (NEGATIVE); LEUKOCYTE ESTERASE,URINE NEGATIVE (NEGATIVE); NITRITE,URINE NEGATIVE (NEGATIVE); PROTEIN,URINE 30 mg/dL (NEGATIVE); URINE SPECIFIC GRAVITY 1.023
--- NOTE | 2020-03-29 16:06 | ER Document Report ---
Entered by MOHAMUD RUFFIN SCRIBE 03/29/20 1547 Acting as scribe for:MENDOZA HANSON MD ED General - General Chief Complaint: Flank Pain Stated Complaint: LOWE BACK PAIN/ BODY SWELLING Time Seen by Provider: 03/29/20 13:11 Primary Care Provider: FRANCK MCNEIL FNP-C [Primary Care Provider] - Follow up as needed Mode of Arrival: Ambulatory Information source: Patient Notes: This 40 year old female patient with a history of Chrohn's disease presents to the emergency department today with complaints of waking up "puffy all over" a few days ago. She describes being "puffy" from her head down to her toes with associated joint pain. Patient mentions that she has had left lower back pain as well and she "googled it and it said it could be her kidneys". She complains of shortness of breath on exertion as well. She denies any known COVID-19 exposure. TRAVEL OUTSIDE OF THE [place] IN LAST 30 DAYS: No - Related Data Allergies/Adverse Reactions: No Known Allergies Allergy (Verified 03/29/20 13:10) Past Medical History - General Information source: Patient - Social History Smoking Status: Current Every Day Smoker Cigarette use (# per day): Yes Frequency of alcohol use: None Drug Abuse: None Lives with: Family Family History: Reviewed & Not Pertinent GI Medical History: Reports: Hx Crohn's Disease Musculoskeletal Medical History: Reports Hx Arthritis - Rheumatoid arthritis Psychiatric Medical History: Reports: Hx Anxiety, Hx Depression - anxiety Past Surgical History: Reports: Hx Abdominal Surgery - 2009, Hx Gynecologic North rgery - tubal , thinks lost tube and 1/2 ovary?, Hx Tonsillectomy - Immunizations Immunizations up to date: Yes Hx Diphtheria, Pertussis, Tetanus Vaccination: No Review of Systems - Review of Systems Constitutional: No symptoms reported EENT: No symptoms reported Cardiovascular: No symptoms reported Respiratory: See HPI, Short of breath Gastrointestinal: No symptoms reported Genitourinary: No symptoms reported Female Genitourinary: No symptoms reported Musculoskeletal: See HPI, Back pain Skin: No symptoms reported Hematologic/Lymphatic: No symptoms reported Neurological/Psychological: See HPI, Headaches -: Yes All other systems reviewed and negative Physical Exam - Vital signs Vitals: Temp Pulse Resp BP Pulse Ox 98.4 F 86 16 128/61 H 100 12/19/20 11:44 03/29/20 11:44 03/29/20 11:44 03/29/20 11:44 03/29/20 11:44 - Notes Notes: Physical Exam: General: Alert, appears well. HEENT: Normocephalic. Atraumatic. PERRL. Extraocular movements intact. Oropharynx clear. Neck: Supple. Non-tender. Respiratory: No respiratory distress. Clear and equal breath sounds bilaterally. Cardiovascular: Regular rate and rhythm. Abdominal: Obese. Lower abdominal tenderness with palpation, no guarding or rebound. No distension. Normal Bowel Sounds. Back: Right lumbar back tenderness to palpation. Exquisite left lower lumbar muscles are tender to palpation. No gross abnormalities. Extremities: Moves all four extremities. Upper extremities: Normal inspection. Normal ROM. Lower extremities: Normal inspection. No edema. Normal ROM. Neurological: Normal cognition. AAOx4. Normal speech. Psychological: Normal affect. Normal Mood. Skin: Warm. Dry. Normal color. Course - Re-evaluation Re-evalutation: 03/29/20 16:56 The patient CRP and ESR are a little bit elevated. That could indicate an exacerbation of her autoimmune disorder and she would likely benefit from short course of prednisone. We will also prescribe a muscle relaxer for her back muscle pain. - Vital Signs Vital signs: Temp Pulse Resp BP Pulse Ox 98.4 F 86 16 128/61 H 100 03/29/20 11:44 03/29/20 11:44 03/29/20 11:44 03/29/20 11:44 03/29/20 11:44 - Laboratory Results Result Diagrams: 03/29/20 13:50 03/29/20 13:50 Laboratory Results Interpreted: 03/29/20 03/29/20 03/29/20 13:50 13:50 13:50 Hgb 11.8 L MCH 26.2 L RDW 15.7 H Lymph % (Auto) 10.1 L Seg Neutrophils % 80.9 H ESR BUN 6 L C-Reactive Protein Urine Protein 30 H Urine Blood SMALL H Urine Urobilinogen 2.0 H 03/29/20 03/29/20 13:50 13:50 Hgb MCH RDW Lymph % (Auto) Seg Neutrophils % ESR 51 H BUN C-Reactive Protein 36.3 H Urine Protein Urine Blood Urine Urobilinogen Critical Laboratory Results Reviewed: No Critical Results - Radiology Results Critical Radiology Results Reviewed: No Critical Results Discharge - Discharge Clinical Impression: Elevated C-reactive protein (CRP), Elevated erythrocyte sedimentation rate Left lumbar pain Qualifiers: Chronicity: acute Sciatica presence: without sciatica Qualified Code(s): M54.5 - Low back pain Abdominal pain Qualifiers: Abdominal location: lower abdomen, unspecified Qualified Code(s): R10.30 - Lower abdominal pain, unspecified Condition: Stable Disposition: HOME, SELF-CARE Additional Instructions: Abdominal Pain There are many causes of abdominal pain. Pain can mean a serious problem requiring surgery (such as appendicitis). It can also be an innocent problem that goes away on its own (such as a viral infection). Often, time must pass to determine the cause of pain. The physician does not feel that hospitalization is necessary, at present. Things may change within the next 24 hours. Call the doctor or come back for re- examination if any problems occur, such as: (1) Pain that becomes more severe, steady, or becomes concentrated in one specific area. Also, pain that is more severe with movement or coughing. (2) Vomiting that persists or becomes more frequent. (3) Blood in the vomitus, urine, or bowel movements. Blood in the stool may have a tarry or black appearance. (4) Shaking chills or fever greater than 100 degrees F. (5) The abdomen becomes more distended or swollen. (6) Bowel movements cease. (7) Failure to improve as expected. Flank Pain We weren't able to prove an exact cause for your flank pain. Pain in the flank can be caused by a muscle strain or spasm. Sometimes a kidney stone causes pain, but can't be found on our tests. Infection in the kidney should be evident on a urine test. Early shingles can occasionally cause flank pain, without the rash that proves the diagnosis. On rare occasions, disease of the pancreas, aorta, spleen, or colon can create pain in the flank. At this time, there's no evidence of a dangerous condition, and it seems safe for you to be at home. If the pain goes away and does not come back, no further testing will be needed. If pain persists, or becomes more severe, we may need to repeat some tests or order additional new testing. Blood in the urine, urgency to urinate frequently, and pain that radiates to the groin can indicate a kidney stone. Fever may mean that the pain is due to infection, either of the kidney or the colon (diverticulitis). If your pain is early shingles, you should develop an eruption of blisters in the painful area within a few days. Call the doctor or return if you have pain that is spreading or becoming more severe, pain that does not resolve with time, fever, or any other new symptoms. Your left low back pain is coming from the lumbar sacral muscles. The inflammatory markers we discussed suggest you may be having a flare of your Crohn's related disease. We will put you on prednisone, muscle relaxer, and you should take Tylenol and ibuprofen to help with your back discomfort. Follow-up with your primary care provider if not improving. RETURN TO THE EMERGENCY ROOM IF ANY NEW OR WORSENING SYMPTOMS. Prescriptions: Cyclobenzaprine HCl 5 mg PO Q8 PRN #15 tablet PRN Reason: Prednisone [Deltasone 10 mg Tablet] 10 mg PO ASDIR PRN #21 tablet PRN Reason: Referrals: FRANCK MCNEIL FNP-C [Primary Care Provider] - Follow up as needed I personally performed the services described in the documentation, reviewed and edited the documentation which was dictated to the scribe in my presence, and it accurately records my words and actions.
[2020-03-29] MEDS ORDERED: PREDNISONE 20 MG TABLET PO ONE (17:01)
[2020-03-29] MEDS ORDERED: CYCLOBENZAPRINE HCL 10 MG TABLET PO ONE (17:01)
[2020-03-29 18:20] VITALS: BP 117/49
== END 2020-03-29 17:18 | disposition home or self-care (01) ==
LOC: ER 11:36
DX: M54.5 Low back pain (principal); R10.30 Lower abdominal pain, unspecified; R79.82 Elevated C-reactive protein (CRP); R70.0 Elevated erythrocyte sedimentation rate; R10.9 Unspecified abdominal pain; R60.0 Localized edema; R06.02 Shortness of breath; K50.90 Crohn's disease, unspecified, without complications; F17.210 Nicotine dependence, cigarettes, uncomplicated
CPT/HCPCS: 99284; 36415; 83690; 84703; 85025; 85652; 86140; 80053; 81001; 83880; 71045; J3490; J7512